=== PATIENT | female | born 2000 | race Hispanic/Latino ===

== ENCOUNTER 2019-10-21 02:29 | Emergency (ER) | payer OTHER ==
--- NOTE | 2019-10-21 03:38 | EDM.PDOC ---
ED HPI GENERAL MEDICAL PROBLEM - General Chief Complaint: Gastrointestinal Problem Stated Complaint: POSSIBLE FOOD poisoning Time Seen by Provider: 10/21/19 03:05 Source of Information: Reports: Patient History Limitations: Reports: No Limitations - History of Present Illness INITIAL COMMENTS - FREE TEXT/NARRATIVE: TRIAGE NOTE -- patient states she woke up 30min ago and vomited. she feels like she chicken she ate at work may have been bad. [ End ] Patient says she has vomited 3 times prior to arrival. She is not nauseated at the present time. She says that she thinks she can take clear liquids and actually feels okay in this respect. However she is complaining of a sore throat now. No fever. No respiratory symptoms. Risk factor identified is cigarette smoking. Patient has not taken any medication or tried any other measure to moderate symptoms. There has been no fever. Patient has not been unwell except for her complaints of the past few hours. She has noticed a sore throat apparently within the past couple of hours. - Related Data Allergies Allergy/AdvReac Type Severity Reaction Status Date / Time No Known Allergies Allergy Verified 10/21/19 02:35 Home Meds: Home Meds . [No Known Home Meds] 10/21/19 [History] Past Medical History - Past Health History Medical/Surgical History: Denies Medical/Surgical History Psychiatric History: Reports: Anxiety Social & Family History - Tobacco Use Smoking Status *Q: Unknown Ever Smoked ED ROS GENERAL - Review of Systems Review Of Systems: Comprehensive ROS is negative, except as noted in HPI. ED EXAM, GI/ABD - Physical Exam Exam: See Below Exam Limited By: No Limitations General Appearance: Alert, WD/WN Eyes: Bilateral: EOMI Ears: Normal External Exam Nose: Normal Inspection Throat/Mouth: Other (Erythema posterior pharynx without asymmetry or exudate) Head: Atraumatic, Normocephalic Neck: Normal Inspection, Supple Respiratory/Chest: No Respiratory Distress, Lungs Clear, Normal Breath Sounds Cardiovascular: Regular Rate, Rhythm, No Edema GI/Abdominal Exam: Soft, Non-Tender Back Exam: No: CVA Tenderness (L), CVA Tenderness (R) Extremities: Normal Inspection Neurological: Alert, Oriented Psychiatric: Normal Affect Skin Exam: Warm, Dry Lymphatic: Adenopathy (Mild cervical, right upper neck) Course - Vital Signs Text/Narrative:: Patient notes that her nausea has resolved. She tolerated clear liquids in the emergency department without vomiting or having recurrence of nausea. Strep test was negative. Patient has a viral syndrome undoubtedly. Note for work given. Strict precautions to return to ER. Last Recorded V/S: Last Vital Signs Temp 36.2 C 10/21/19 02:36 Pulse 92 10/21/19 02:36 Resp 16 10/21/19 02:36 BP 124/75 10/21/19 02:36 Pulse Ox 100 10/21/19 02:36 - Orders/Labs/Meds Orders: Active Orders 24 hr Category Date Time Status CULTURE STREP A CONFIRMATION [RM] Stat Lab 10/21/19 03:40 Results Rapid Strep w/culture conf [STREP SCRN A RAPID W CULT Lab 10/21/19 03:40 Results CONF] [] Stat Labs: Laboratory Tests 10/21/19 10/21/19 Range/Units 03:00 03:00 Urine Color Light yellow (Yellow) Urine Appearance Slt cloudy H (Clear) Urine pH 7.0 (5.0-8.0) Ur Specific [place] > or = 1.030 (1.005-1.030) Urine Protein 1+ H (Negative) Urine Glucose (UA) Negative (Negative) Urine Ketones Negative (Negative) Urine Occult Blood Negative (Negative) Urine Nitrite Negative (Negative) Urine Bilirubin Negative (Negative) Urine Urobilinogen 1.0 (0.2-1.0) Ur Leukocyte Esterase Negative (Negative) Urine RBC 0-5 (0-5) /hpf Urine WBC 5-10 H (0-5) /hpf Ur Squamous Epith Cells 10-20 H (0-5) /hpf Amorphous Sediment Few H (NOT SEEN) /hpf Urine Bacteria Moderate H (FEW) /hpf Urine Mucus Moderate H (FEW) /hpf Urine HCG, Qual Negative (NEGATIVE) Departure - Departure Time of Disposition: 04:24 Disposition: Home, Self-Care 01 Condition: Good Clinical Impression: History of vomiting, Viral syndrome, Tobacco abuse counseling - Discharge Information *PRESCRIPTION DRUG MONITORING PROGRAM REVIEWED*: Not Applicable *COPY OF PRESCRIPTION DRUG MONITORING REPORT IN PATIENT LEONEL: Not Applicable Referrals: PCP,None [Primary Care Provider] - Forms: ED Department Discharge Additional Instructions: As your nausea has resolved there was no specific treatment given in the ER. In light of the mild red throat a strep test was done which was also negative. This is likely a viral syndrome and supportive care is in order. Push fluids, maintain good urine output, adequate rest is in order. Referred to local primary. Precautions for return to ER, fever, worsening symptoms, cough with sputum production. You are urged to stop smoking cigarettes. Sepsis Event Note - Evaluation Sepsis Screening Result: No Definite Risk - Focused Exam Vital Signs: Vital Signs Temp Pulse Resp BP Pulse Ox 10/21/19 02:36 36.2 C 92 16 124/75 100 Date Exam was Performed: 10/21/19 Time Exam was Performed: 04:23 - My Orders Last 24 Hours: My Active Orders 10/21/19 03:40 CULTURE STREP A CONFIRMATION [RM] Stat Rapid Strep w/culture conf [STREP SCRN A RAPID W CULT CONF] [RM] Stat - Assessment/Plan Last 24 Hours: My Active Orders 10/21/19 03:40 CULTURE STREP A CONFIRMATION [RM] Stat Rapid Strep w/culture conf [STREP SCRN A RAPID W CULT CONF] [RM] Stat
== END 2019-10-21 04:34 | disposition home or self-care (01) ==
LOC: JD.ED 02:29
DX: B34.9 Viral infection, unspecified (principal); Z71.6 Tobacco abuse counseling
CPT/HCPCS: 81001; 81025; 87081; 87430; 99282; 99284